=== PATIENT | male | born 1985 | race Caucasian/White ===

== ENCOUNTER 2021-02-01 21:31 | Emergency (ER) | payer MEDICAID, SELFPAY ==
[2021-02-01 21:32] VITALS: BP 123/66; PULSE 65; RESP 18; O2SAT 99; BMI 21.1
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
--- NOTE | 2021-02-01 21:38 | XRR_ITS ---
PROCEDURE INFORMATION: Exam: XR Left Forearm Exam date and time: 02/01/2021 9:38 PM Age: 35 years old Clinical indication: Lower or forearm; Patient HX: Left forearm pain; Additional info: Injury TECHNIQUE: Imaging protocol: XR Left forearm. Views: 2 views. COMPARISON: No relevant prior studies available. FINDINGS: Hairline fracture of the ulnar mid-diaphysis is noted. No joint dislocation is detected. XR/XR forearm LT 2V [id number] IMPRESSION: Ulnar diaphysis hairline fracture. Radiation Dose CTDIVOL = (mGy): DLP = (mGy-cm)
[2021-02-01 21:48] VITALS: RESP 22
[2021-02-01] MEDS: HYDROmorphone 1 mg/mL INJ 1 mL IVP ×2 (21:48→22:57)
[2021-02-01] MEDS: ondansetron 2 mg/ML SDV 2 mL 4 MG IVP (21:49)
[2021-02-01] MEDS: sodium chloride 0.9% 1,000 ML 999 ML IV (21:49)
--- NOTE | 2021-02-01 21:54 | XRR_ITS ---
PROCEDURE INFORMATION: Exam: XR Left Elbow Exam date and time: 02/01/2021 9:54 PM Age: 35 years old Clinical indication: Patient HX: Left elbow pain; Additional info: Injury TECHNIQUE: Imaging protocol: XR Left elbow. Views: 3 or more views. COMPARISON: Left forearm radiographs from today FINDINGS: Hairline fracture of the ulnar diaphysis is again noted. No other fracture is seen. No joint dislocation. XR/XR elbow LT min 3V* [id number] IMPRESSION: No fracture or dislocation is seen in the left elbow. Hairline fracture of the ulnar diaphysis is again seen. Radiation Dose CTDIVOL = (mGy): DLP = (mGy-cm)
[2021-02-01] MEDS: iohexol 300 mg/mL 100 mL Btl IV (21:55)
[2021-02-01 22:03] LABS: Basophils # 0.1 10^3/uL (0.0-0.1); Basophils % 0.5 %; Eosinophils # 0.7 10^3/uL (0.0-0.8); Eosinophils % 4.6 %; Hematocrit 47.8 % (42.0-52.0); Lymphocytes # 3.2 10^3/uL (0.8-4.8); Lymphocytes % 21.4 %; Mean Corpuscular HGB Conc 31.4 g/dL (30.0-36.0); Mean Corpuscular Hemoglobin 31.8 pg (28.0-34.0); Mean Corpuscular Volume 101.5 fl (80-94); Mean Platelet Volume 9.8 fL (7.4-10.4); Monocytes # 0.6 10^3/uL (0.2-0.9); Monocytes % 4.3 %; Neutrophils # 10.28 10^3/uL (1.8-7.7); Neutrophils % 68.8 %; Nucleated Red Blood Cells % 0 %; Platelet Count 277 10^3/cmm (130-400); Red Blood Count 4.71 10^6/uL (4.1-5.3); Red Cell Distribution Width 12.7 % (12.1-15.1); White Blood Count 14.9 10^3/uL (4.0-10.0)
[2021-02-01 22:57] VITALS: RESP 22; O2SAT 100
[2021-02-01 23:02] VITALS: BP 147/77; PULSE 70; RESP 19; TEMP 36.4; O2SAT 100
[2021-02-01 23:03] LABS: Alcohol Level < 10 mg/dL (0-10)
[2021-02-01 23:06] LABS: Alanine Aminotransferase 24 U/L (0-41); Albumin Level 3.8 g/dL (3.5-5.2); Alkaline Phosphatase 88 IU/L (40-130); Anion Gap 13.7 (5-19); Aspartate Amino Transferase 27 U/L (0-40); Blood Urea Nitrogen 11 mg/dL (6-20); Calcium 8.6 mg/dL (8.5-10.5); Carbon Dioxide 23 mmol/L (22-29); Chloride 101 mmol/L (98-107); Glomerular Filtration Rate 155.2 mL/min (90-130); Glucose 121 mg/dL (65-115); Osmolality Calculated 279 mOsm/kg (285-295); Potassium 3.7 mmol/L (3.5-5.1); Sodium 134 mmol/L (136-145); Total Bilirubin 0.4 mg/dL (0.15-1.2); Total Protein 5.8 g/dL (6.6-8.7)
--- NOTE | 2021-02-10 10:38 | DCPLANNER ---
Patient has a follow up appointment scheduled for Saturday, February 15, 2021 at 10:[address] Vargas at [facility]. Clinic will call patient with appointment information.
== END 2021-02-01 23:07 | disposition short-term general hospital (02) ==
PROVIDERS: Emergency Provider Emergency Medicine
DX: S36.031A Moderate laceration of spleen, initial encounter (principal); S22.32XA Fracture of one rib, left side, initial encounter for closed fracture; S52.202A Unspecified fracture of shaft of left ulna, initial encounter for closed fracture; V09.9XXA Pedestrian injured in unspecified transport accident, initial encounter
CPT/HCPCS: 29125; 71045; 71260; 73080; 73090; 74177; 80053; 80307; 85025; 86850; 86900; 96361; 96374; 96375; 96376; 99284; 99291; 99292; J1170; J2405; J7030; Q9967